=== PATIENT | female | born 1960 | race African-American/Black ===

== ENCOUNTER 2020-07-22 10:10 | Emergency (ER) | payer OTHER ==
[~2020-07-22] VITALS: Ht 170.2 cm; Wt 82.0 kg
[2020-07-22 10:14] VITALS: BP 181/118
== END 2020-07-22 11:38 | disposition home or self-care (01) ==
LOC: ER 10:20
DX: Z00.8 Encounter for other general examination (principal); R44.0 Auditory hallucinations; I10 Essential (primary) hypertension; D57.1 Sickle-cell disease without crisis; Z88.6 Allergy status to analgesic agent
CPT/HCPCS: 93005; 99283; Z7610

== ENCOUNTER 2020-07-26 10:17 | Emergency (ER) | payer OTHER ==
[~2020-07-26] VITALS: Ht 165.1 cm; Wt 86.0 kg
[2020-07-26 10:50] LABS: BASOPHILS % 0.5 % (0.0-2.0); HEMATOCRIT. 36.9 % (36.0-48.0); HEMOGLOBIN. 12.1 g/dL (12.0-16.0); LYMPHOCYTES % 14.3 % (20.0-50.0); MEAN CORPUSCULAR HEMOGLOBIN 27.3 pg (28.0-32.0); MEAN PLATELET VOLUME 7.9 fl (7.4-10.4); MONOCYTES % 5.8 % (2.0-8.0); NEUTROPHILS % 79.4 % (40.0-76.0); PLATELET 428 x1000/uL (130-400); RED BLOOD CELL COUNT 4.45 mill/uL (4.2-5.4); RED CELL DISTRIBUTION WIDTH 16.9 % (11.6-14.6)
[2020-07-26 10:53] LABS: CHLORIDE 97 mEq/L (98-107)
[2020-07-26 10:57] LABS: ETHANOL BLOOD < 10 mg/dL; INR 1.1; PROTHROMBIN TIME 12.2 sec (9.6-11.0)
[2020-07-26 14:30] VITALS: BP 163/88
== END 2020-07-26 14:20 | disposition home or self-care (01) ==
LOC: ER 10:23
DX: G93.40 Encephalopathy, unspecified (principal); N28.9 Disorder of kidney and ureter, unspecified; I10 Essential (primary) hypertension; Z88.6 Allergy status to analgesic agent
CPT/HCPCS: 36415; 71045; 80053; 80320; 82962; 85025; 93005; 99285; G0480